=== PATIENT | male | born 1945 | race Caucasian/White ===

== ENCOUNTER → 2018-12-07 | Outpatient (CLI) | payer OTHER ==
[~2018-12-07] MED LIST: CEPH500C2 PO; CIPR-245 PO; HYDR-4060 PO; IGG INJ; LEVO137T2 PO; LORA-705 PO; SIMV10TA6 PO; WARF-57 PO; WARF7.5T49 PO
== END | disposition home or self-care (01) ==
LOC: RAH 12:44
PROVIDERS: ATTEND Family Medicine
DX: M13.88 Other specified arthritis, other site (principal); Z85.9 Personal history of malignant neoplasm, unspecified
CPT/HCPCS: 78306; A9503